=== PATIENT | male | born 1960 | race Caucasian/White ===

== ENCOUNTER 2017-07-21 19:04 | Observation (INO) | payer OTHER ==
[~2017-07-21] VITALS: Ht 182.9 cm; Wt 97.5 kg
[2017-07-21 20:13] LABS: COLLECTION METHOD CLEAN CATCH
[2017-07-21 20:24] LABS: HEMATOCRIT 50.4 % (42.0-52.0); HEMOGLOBIN 17.7 g/dl (13.5-18.0); MEAN CELL VOLUME 87 fl (80.0-100.0); MEAN CORPUSCULAR HEMOGLOBIN 31 pg (27.0-31.0); MEAN CORPUSCULAR HGB CONC 35 g/dl (33.0-37.0); MEAN PLATELET VOLUME 10.4 fl (7.4-10.4); PLATELET COUNT 281 K/mm3 (130-400); WHITE BLOOD COUNT 14.1 K/mm3 (4.8-10.8)
[2017-07-21 20:34] LABS: ADD PATHOLOGY DIFF REVIEW NO; ADJUSTED CALCIUM 8.7 mg/dL (8.4-10.2); ALANINE AMINOTRANSFERASE 41 U/L (21-72); ALKALINE PHOSPHATASE 59 U/L (50-136); ANION GAP 10 mmol/L (7-16); BLOOD UREA NITROGEN 15 mg/dL (9-20); C-REACTIVE PROTEIN 1.7 mg/dL (0.0-0.9); CALCIUM 8.7 mg/dL (8.4-10.2); CARBON DIOXIDE 26 mmol/L (22-30); CHLORIDE 102 mmol/L (98-107); CREATININE, serum 1.08 mg/dL (0.66-1.25); GLUCOSE 122 mg/dL (74-106); LIPASE 25 U/L (23-300); POTASSIUM 3.4 mmol/L (3.4-5.0); SODIUM 139 mmol/L (137-145); TOTAL PROTEIN 6.8 gm/dL (6.4-8.2)
[2017-07-21 20:38] LABS: MUCOUS Present /lpf; PH 5 (5-8); SQUAMOUS EPITHELIAL None Seen /hpf; URINE APPEARANCE Clear; URINE BACTERIA None Seen /hpf; URINE BILIRUBIN Negative (NEGATIVE); URINE BLOOD Negative (NEGATIVE); URINE COLOR Yellow; URINE GLUCOSE Negative (NEGATIVE); URINE KETONE 1+ (NEGATIVE); URINE LEUKOCYTE ESTERASE Negative (NEGATIVE); URINE PROTEIN(semi-quant) Negative (NEGATIVE); URINE UROBILINOGEN Negative (NEGATIVE)
[2017-07-21 20:42] LABS: TROPONIN-I < 0.012 ng/mL (0.000-0.034)
[2017-07-21 20:48] LABS: BAND 10 % (0-10); LYMPHOCYTE 5 % (20.0-51.0); NEUTROPHILS 81 % (42.0-75.2); TOTAL CELLS COUNTED 100
[2017-07-21 21:00] LABS: PLATELET ESTIMATE NORMAL (NORMAL)
[2017-07-21] MEDS ORDERED: FLONASEALLERGY (21:18)
[2017-07-21] MEDS ORDERED: PROTONIX20 MG (21:18)
[2017-07-21] MEDS ORDERED: WELLBUTRIN 75MG75 MG (21:18)
[2017-07-21] MEDS ORDERED: DIOVAN 40MG40 MG (21:19)
[2017-07-21] MEDS ORDERED: TESTERONE (21:20)
[2017-07-21] MEDS ORDERED: ALLEGRA 60MG TA60 MG (21:20)
[2017-07-21] MEDS ORDERED: CIALIS2.5 MG (21:21)
[2017-07-21 22:53] VITALS: BP 123/76; PULSE 112; TEMP 98.8
[2017-07-21] MEDS ORDERED: VITAL-D1 TAB PO (23:31)
[2017-07-21 23:37] VITALS: BP 123/76; PULSE 112; TEMP 98.8
[2017-07-21 23:49] LABS: INFLUENZA A NEGATIVE; INFLUENZA B NEGATIVE
[2017-07-22 00:04] VITALS: BP 123/76; PULSE 112; TEMP 98.8
[2017-07-22 04:48] VITALS: BP 150/81; PULSE 112; TEMP 98.3
[2017-07-22 05:57] LABS: BASO % 0.3 % (0.0-2.0); EOS # 0.1 (0.0-0.7); EOS % 0.8 % (0-4.0); GRAN # 6.5 (1.4-6.5); GRAN % 81.6 % (42.2-75.2); HEMATOCRIT 45.1 % (42.0-52.0); LYMPH # 0.8 (1.2-3.4); MEAN CELL VOLUME 88 fl (80.0-100.0); MEAN CORPUSCULAR HEMOGLOBIN 30 pg (27.0-31.0); MEAN CORPUSCULAR HGB CONC 34 g/dl (33.0-37.0); MEAN PLATELET VOLUME 9.9 fl (7.4-10.4); MONO # 0.5 (0.1-0.6); MONO % 6.7 % (1.7-9.3); PLATELET COUNT 245 K/mm3 (130-400); WHITE BLOOD COUNT 7.9 K/mm3 (4.8-10.8)
[2017-07-22 06:14] LABS: CALCIUM 7.8 mg/dL (8.4-10.2); CREATININE, serum 1.03 mg/dL (0.66-1.25); POTASSIUM 3.9 mmol/L (3.4-5.0)
[2017-07-22 06:41] LABS: HEMOGLOBIN 15.4 g/dl (13.5-18.0)
[2017-07-22 07:30] VITALS: BP 147/81; PULSE 108; TEMP 97.9
[2017-07-22 11:08] VITALS: BP 147/80; PULSE 105; TEMP 99.6
[2017-07-22 15:37] VITALS: BP 128/62; PULSE 104; TEMP 98.4
[2017-07-22] MEDS ORDERED: ZOFRAN 4MG T4 MG/TAB PO (17:18)
== END 2017-07-22 18:03 | disposition home or self-care (01) ==
LOC: COL.ER 19:04 → MEDICAL 21:59 → COL.ER 21:59 → MEDICAL 07-22 12:06
PROVIDERS: Emergency Medicine; Internal Medicine; Nurse Practitioner
DX: E86.0 Dehydration (principal); K52.9 Noninfective gastroenteritis and colitis, unspecified; E87.6 Hypokalemia; I10 Essential (primary) hypertension; K21.9 Gastro-esophageal reflux disease without esophagitis; Z87.442 Personal history of urinary calculi; R00.0 Tachycardia, unspecified; F32.9 Major depressive disorder, single episode, unspecified
CPT/HCPCS: G0378; J1170; J1956; J7030; Q9967

== ENCOUNTER → 2020-11-05 | Outpatient (REF) | payer OTHER, BC ==
[~2020-11-05] MED LIST: ALLEGRA 60MG TA60 MG; CIALIS2.5 MG; DIOVAN 40MG40 MG; FLONASEALLERGY; PERCOCET 325 MG1 TAB PO; PROTONIX20 MG; TESTERONE; VITAL-D1 TAB PO; WELLBUTRIN 75MG75 MG; ZOFRAN 4MG T4 MG/TAB PO; ZOFRAN ODT4 MG PO
== END ==
LOC: ZCOL.LAB 18:38
DX: H60.543 Acute eczematoid otitis externa, bilateral (principal)

== ENCOUNTER 2020-11-09 11:02 | Emergency (ER) | payer BC ==
[~2020-11-09] VITALS: Ht 182.9 cm; Wt 95.5 kg
[~2020-11-09 11:02] MED LIST changes: -PERCOCET 325 MG1 TAB PO; -ZOFRAN ODT4 MG PO
[2020-11-09 11:10] VITALS: TEMP 98.1
[2020-11-09 11:45] LABS: BASO % 0.4 % (0.0-2.0); EOS # 0.1 (0.0-0.7); EOS % 0.9 % (0-4.0); GRAN # 8.6 (1.4-6.5); HEMATOCRIT 46.5 % (42.0-52.0); HEMOGLOBIN 16.2 g/dl (13.5-18.0); LYMPH # 1.5 (1.2-3.4); MEAN CELL VOLUME 86 fl (80.0-100.0); MEAN CORPUSCULAR HEMOGLOBIN 30 pg (27.0-31.0); MEAN CORPUSCULAR HGB CONC 35 g/dl (33.0-37.0); MEAN PLATELET VOLUME 10.2 fl (7.4-10.4); MONO # 0.6 (0.1-0.6); MONO % 5.3 % (1.7-9.3); PLATELET COUNT 301 K/mm3 (130-400); RED BLOOD COUNT 5.38 M/mm3 (4.20-5.60); REDCELL DISTRIBUTION WIDTH-CV 12.3 % (11.5-14.5)
[2020-11-09 11:50] LABS: ALBUMIN 4.4 gm/dL (3.5-5.0); BILIRUBIN,TOTAL 0.9 mg/dL (0.0-1.0); CALCIUM 9.5 mg/dL (8.4-10.2); CREATININE, serum 1.2 (0.66-1.25); POTASSIUM 3.5 mmol/L (3.4-5.0); TOTAL PROTEIN 7.4 gm/dL (6.4-8.2)
[2020-11-09 12:08] LABS: COLLECTION METHOD CLEAN CATCH
[2020-11-09 12:21] LABS: MUCOUS Present /lpf; PH 5 (5-8); SQUAMOUS EPITHELIAL None Seen /hpf; URINE APPEARANCE Cloudy; URINE BACTERIA None Seen /hpf; URINE BILIRUBIN Negative (NEGATIVE); URINE BLOOD 3+ (NEGATIVE); URINE COLOR Yellow; URINE GLUCOSE Negative (NEGATIVE); URINE KETONE Trace (NEGATIVE); URINE LEUKOCYTE ESTERASE Negative (NEGATIVE); URINE NITRATE Negative (NEGATIVE); URINE PROTEIN(semi-quant) 2+ (NEGATIVE); URINE RBC >50 /hpf; URINE UROBILINOGEN Negative (NEGATIVE)
[2020-11-09] MEDS ORDERED: PERCOCET 325 MG1 TAB PO (13:53)
[2020-11-09] MEDS ORDERED: ZOFRAN ODT4 MG PO (13:56)
[2020-11-09 14:02] VITALS: BP 142/90; PULSE 81
== END 2020-11-09 14:05 | disposition home or self-care (01) ==
LOC: COL.ER 11:02
PROVIDERS: Physician Assistant
DX: N13.2 Hydronephrosis with renal and ureteral calculous obstruction (principal); I10 Essential (primary) hypertension; K21.9 Gastro-esophageal reflux disease without esophagitis; F32.9 Major depressive disorder, single episode, unspecified; Z87.442 Personal history of urinary calculi
CPT/HCPCS: J1170; J1885; J7030; Q9967